=== PATIENT | female | born 1935 | race Caucasian/White ===

== ENCOUNTER 2016-05-05 10:54 | Outpatient (CLI) | payer MEDICARE ==
[~2016-05-05] VITALS: Ht 157.5 cm; Wt 62.7 kg
[~2016-05-05 10:54] MED LIST: CALCIUM 600+D T1 TA1 PO; PRAVACHOL40 MG PO; PRESERVISION AR1 CAP PO; VITAMIN D31000 UNI2 PO
[2016-05-05 12:06] VITALS: BP 131/60; Ht 157.5 cm; Wt 62.7 kg
--- NOTE | 2016-05-05 12:16 | NUR ---
PROLIA INJECTION TO RIGHT ARM LOT #:[id number] EXP: 06/22
== END 2016-05-05 12:16 | disposition home or self-care (01) ==
LOC: D.OPS 10:54
DX: M81.0 Age-related osteoporosis without current pathological fracture (principal)

== ENCOUNTER 2016-11-08 12:32 | Outpatient (CLI) | payer MEDICARE ==
[~2016-11-08] VITALS: Ht 157.5 cm; Wt 65.0 kg
[2016-11-08 13:20] VITALS: BP 135/75; Ht 157.5 cm; Wt 65.0 kg
== END 2016-11-08 13:35 | disposition home or self-care (01) ==
LOC: D.OPS 12:32
DX: M81.0 Age-related osteoporosis without current pathological fracture (principal)

== ENCOUNTER 2017-04-12 18:43 | Emergency (ER) | payer MEDICARE ==
[2016-11-08 13:20] VITALS: BMI 26.2
== END 2017-04-13 00:57 | disposition home or self-care (01) ==
LOC: D.ER 18:43
DX: J11.1 Influenza due to unidentified influenza virus with other respiratory manifestations (principal)

== ENCOUNTER 2017-05-09 10:44 | Outpatient (CLI) | payer MEDICARE ==
[2017-05-09 11:32] VITALS: BMI 26.6
== END 2017-05-09 11:50 | disposition home or self-care (01) ==
LOC: D.OPS 10:44
DX: M81.0 Age-related osteoporosis without current pathological fracture (principal)

== ENCOUNTER 2017-11-21 13:10 | Outpatient (CLI) | payer MEDICARE | END 2017-11-21 14:15 | disposition home or self-care (01) | LOC: D.OPS 13:10 | DX: M81.0 Age-related osteoporosis without current pathological fracture (principal); Z01.812 Encounter for preprocedural laboratory examination ==

== ENCOUNTER 2018-07-17 12:27 | Outpatient (CLI) | payer MEDICARE ==
[~2018-07-17] VITALS: Ht 157.5 cm; Wt 66.4 kg
[2018-07-17 13:04] VITALS: BP 142/62; Ht 157.5 cm; Wt 66.4 kg
== END 2018-07-17 13:17 | disposition home or self-care (01) ==
LOC: D.OPS 12:27
PROVIDERS: ATTEND Family Medicine
DX: M81.0 Age-related osteoporosis without current pathological fracture (principal)

== ENCOUNTER 2019-01-29 11:49 | Outpatient (CLI) | payer MEDICARE ==
[2018-07-17 13:04] VITALS: BMI 26.7
== END 2019-01-29 13:02 | disposition home or self-care (01) ==
LOC: D.OPS 11:49
PROVIDERS: ATTEND Family Medicine
DX: M81.0 Age-related osteoporosis without current pathological fracture (principal)

== ENCOUNTER 2019-08-14 12:20 | Outpatient (CLI) | payer MEDICARE ==
[~2019-08-14] VITALS: Ht 157.5 cm; Wt 64.1 kg
[2019-08-14 12:43] VITALS: BP 133/77; Ht 157.5 cm; Wt 64.1 kg
== END 2019-08-14 12:47 ==
LOC: D.OPS 12:20
PROVIDERS: ATTEND Family Medicine
DX: M81.0 Age-related osteoporosis without current pathological fracture (principal)

== ENCOUNTER 2020-08-19 12:46 | Outpatient (CLI) | payer MEDICARE ==
[~2020-08-19] VITALS: Ht 160 cm; Wt 63.6 kg
[2020-08-19 13:08] VITALS: BP 136/72; Ht 160 cm; Wt 63.6 kg
== END 2020-08-19 13:21 | disposition home or self-care, planned readmission (81) ==
LOC: D.OPS 12:46
PROVIDERS: ATTEND Family Medicine
DX: M81.0 Age-related osteoporosis without current pathological fracture (principal)